=== PATIENT | female | born 1990 | race Caucasian/White ===

== ENCOUNTER 2023-06-10 20:56 | Emergency (ER) | payer BC, SELFPAY ==
[2023-06-10 20:57] VITALS: BP 138/91; PULSE 87; RESP 15; TEMP 36.7; O2SAT 100; BMI 35.6
--- NOTE | 2023-06-10 21:07 | EKG12_ITS ---
Test Reason : CP Blood Pressure : / mmHG Vent. Rate : 086 BPM Atrial Rate : 086 BPM P-R Int : 164 ms QRS Dur : 076 ms QT Int : 368 ms P-R-T Axes : 055 064 052 degrees QTc Int : 440 ms Normal sinus rhythm Possible Left atrial enlargement Borderline ECG Confirmed by GLADYS SANTAMARIA, CHELITA ([id number]), newspaper copy editor NANCY ALMAZAN ([id number]) on 06/18/2023 10:44:23 AM Referred By: ROSE MARIE Confirmed By:CHELITA GRAHAM MD
--- NOTE | 2023-06-10 21:44 | RAD_ITS ---
STUDY: X-RAY CHEST REASON FOR EXAM: Female, 32 years old. chest pain TECHNIQUE: Single AP portable view of the chest. COMPARISON: None. FINDINGS: The lungs are clear and expanded. There is no demonstrated pleural abnormality. Normal size heart. Normal mediastinum and talha. Normal visualized pulmonary arteries. Normal visualized aortic arch and descending thoracic aorta. Normal visualized thoracic spine. Normal visualized ribs, clavicles, and shoulders. There is no demonstrated abnormality of the visualized soft tissue structures of the upper abdomen. RAD/Chest 1 View (Portable) IMPRESSION: Normal x-ray examination of the chest. Electronically Signed: Karla Kelly MD at 22:19 [facility] ,
[2023-06-10 21:57] VITALS: BP 139/76; PULSE 76; RESP 16; O2SAT 100
[2023-06-10 21:59] LABS: Absolute Lymphocyte Count 2.15 X10^3/uL (0.83-4.51); Absolute Neutrophil Count 7.2 X10^3/uL (2.0-7.7); Basophil# 0.04 X10^3/uL; Basophil% 0.4 % (0-1); Eosinophil# 0.14 X10^3/uL; Eosinophils% 1.4 % (0-5); Hematocrit 38.4 % (37-47); Lymphocyte # 2.15 X10^3/ul (0.83-4.51); Lymphocyte % 20.8 % (19-41); Mean Corp Hgb Conc 31.3 g/dL (32-36); Mean Corpuscular Hgb 29.3 pg (27.0-32.0); Mean Corpuscular Volume 93.9 fL (81-99); Mean Platelet Vol. 10.3 fl (6.2-12.0); Monocyte# 0.81 X10^3/uL; Monocyte% 7.8 % (0-10); NRBC Flagged by Analyzer 0 % (0-5); Neutrophil # 7.16 X10^3/uL (2.7-7.7); Platelet Count 253 K/mm3 (150-450); RBC Distribution Width CV 11.9 % (11.6-14.6); RBC Distribution Width SD 41.2 fl (35.1-43.9); Red Blood Count 4.09 M/mm3 (4.2-5.4); White Blood Count 10.4 K/mm3 (4.4-11.0)
--- NOTE | 2023-06-10 21:59 | EDS_ITS ---
HPI History of Present Illness Chief Complaint: Chest Pain PFSH PFSH Allergy/AdvReac Type Severity Reaction Status Date / Time No Known Allergies Allergy Verified 06/10/23 21:02 Social History Smoking Status: Never smoker EXAM Physical Exam Const Vital Signs: 06/10/23 20:57 06/10/23 21:51 06/10/23 21:57 Temperature 98.0 F Temperature Source Temporal Pulse Rate 87 76 Respiratory Rate 15 16 Blood Pressure 138/91 H 139/76 H Blood Pressure Mean 106 97 Pulse Ox 100 100 Oxygen Delivery Method Room Air Room Air Room Air 06/10/23 23:00 06/11/23 00:00 Temperature Temperature Source Pulse Rate 78 72 Respiratory Rate 16 16 Blood Pressure 125/77 H 129/77 H Blood Pressure Mean 93 94 Pulse Ox 100 99 Oxygen Delivery Method Room Air Room Air MDM MDM MDM Narrative Medical decision making narrative: HISTORY OF PRESENT ILLNESS: 32-year-old female presents with chest pain. Notes chest discomfort that is worse with sitting up and lying flat. Notes pain started 48 hours ago and worsened this afternoon. She then notes moving furniture 2 and half weeks ago and noted discomfort after this in her chest. Is been constant since that time per her. Pain is not exertional. She does note it is worse with deep breath. She notes drink alcohol on Friday but not more than usual. She does not smoke. She has no history of hypertension, hyperlipidemia or cardiovascular disease. No family history of early cardiac . No vomiting. No recent illnesses such as coughing, stuffy nose runny nose fever etc. No recent bleeding diathesis noted. No recent diarrhea or other volume loss. Patient denies sudden onset of pain, no tearing sensation, no migratory symptoms, no new numbness, weakness or loss of sensation. Patient denies family history or personal history of Marfan syndrome or Naveen-Danlos. The patient denies recent surgery in the last 4 weeks or immobilization in the last 3 days, denies previous diagnosis of DVT or PE, hemoptysis, unilateral leg swelling or malignancy with treatment the last 6 months. No estrogen use noted. REVIEW OF SYSTEMS: All other systems reviewed and are negative except as noted in the history of present illness. At least 10 review of systems reviewed and are negative except as noted in history of present illness. PHYSICAL EXAM: Nursing triage notes reviewed, Vital signs reviewed Constitutional: please see mdm HENT: MMM Eyes: Pupils equal round and reactive to light, Extraocular muscles intact Neck: No stridor, no JVD, full neck ROM Lungs: Clear to auscultation, No wheezing or rales. No increased work of breathing, no conversational dyspnea, no accessory muscle use, no nasal flaring. No respiratory distress noted Heart: Regular rate and rhythm, No murmurs, No rubs and No gallops, 2+ distal pulses (radial, femoral, posterior tibial) in all extremities Abdomen: Soft, there is no tenderness, rigidity, rebound or guarding, no obvious peritoneal signs, no palpable pulsatile abdominal masses, no auscultated abdominal bruit : No CVAT Extremities: No edema Neuro: No focal neurological deficits, cranial nerves II through XII intact, 5/5 strength in all extremities. Intact sensation to light touch in all extremities, 2+ reflexes bilateral patella tendons. Normal gait. No ataxia. Skin: No rash or lesions noted MEDICAL DECISION MAKING: Chief Complaint: Chest pain External records reviewed: No recent cardiac catheterization stress test or echocardiograms noted in system Factors affecting care: No documented past medical Social determinants of health: No cocaine or methamphetamine History obtained from others: The patient's Consults: none MDM Narrative: Patient was hemodynamically stable, afebrile, nontoxic-appearing. Exam without focal cardiopulmonary abnormalities. I considered the following differential diagnosis: ACS, arrhythmia, anemia, electrolyte abnormality, pneumonia, pneumothorax, GI etiology, PE ALL IMAGES (IF OBTAINED) HAVE BEEN PERSONALLY REVIEWED AND INTERPRETED BY MYSELF. EKG with normal sinus rhythm, normal axis, normal intervals, no STEMI, no evidence of pericarditis. WPW, no Brugada or ARVD CBC without leukocytosis, severe anemia, no thrombocytopenia. I have personally reviewed the patient's chest x-ray. Chest x-ray is unremarkable for pulmonary edema, pneumothorax, pneumonia or focal cardiopulmonary abnormality. Lipase is wnl indicating no pancreatic inflammation. BMP without evidence of significant electrolyte abnormalities, no anion gap, no acute kidney injury. LFTs show no evidence of hepatobiliary pathology. HS-Troponin is negative, no evidence of myocardial ischemiax2 The synthesis of the patient history, physical exam, labs, images show no e vidence of life-limiting etiology. Unclear etiology possible msk related. PE less likely given low risk Wells score. Aortic dissection is thought to be less likely given no sudden ripping or tearin g pain, migratory pain, palpable pulse inequalities, no focal neurologic deficits concurrent with chest pain. Chance of dissection less than 07/1999. Pericarditis less likely given no pathognomonic EKG changes (no diffuse ST elevations, MI depressions). GI etiology (i.e. Boerhaave syndrome) less likely given no chest or neck crepitus, no vomiting or forced retching. I completed a HEART Score to screen for Major Adverse Cardiac Event (MACE) in this patient. The evidence indicates that the patient is very low risk for MACE and this is consistent with my clinical intuition. The risk of further workup or hospitalization for MACE is likely higher than the risk of the patient having a MACE. It is, therefore, in the patient?s best interest not to do additional emergent testing or to be hospitalized for MACE at this time. Shared Decision-Making No hospitalization indicated I have discussed with the patient my clinical impression and the result of the HEART Score to screen for MACE, as well as the risks of further testing and hospitalization. The HEART Score shows that the risk for MACE is less than 1%. Although the risk of MACE has not been completely eliminated, the risks of further testing or hospitalization for MACE likely exceed any potential benefit, and the patient agrees with not pursuing further emergent evaluation or hospitalization for MACE at this time. The patient and/or family, caregivers express understanding. The patient and/or family, caregivers agrees with the plan. Total critical care time today provided was at least 0 minutes. This excludes separately billable procedures. Critical care time (if documented) is secondary to the patient having high probability of clinically significant/life threatening deterioration in the patient's condition which required my urgent intervention. Impression: 1. Chest pain 2. Epigastric abdominal pain Disposition: Discharge Partick Chun DO Lab Data Labs: Laboratory Results - last 24 hr 06/10/23 06/10/23 21:43 23:38 WBC 10.4 RBC 4.09 L Hgb 12.0 Hct 38.4 MCV 93.9 MCH 29.3 MCHC 31.3 L RDW Std Deviation 41.2 RDW Coeff of Alvin 11.9 Plt Count 253 MPV 10.3 Immature Gran % (Auto) 0.600 Neut % (Auto) 69.0 Lymph % (Auto) 20.8 [place] % (Auto) 7.8 Eos % (Auto) 1.4 Baso % (Auto) 0.4 Absolute Neuts (auto) 7.2 Absolute Lymphs (auto) 2.15 Nucleated RBC % 0 Sodium 139 Potassium 4.4 Chloride 107 Carbon Dioxide 29.0 Anion Gap 3 L BUN 15 Creatinine 0.82 Estim Creat Clear Calc 97.52 Est GFR (MDRD) Af Amer 102 Est GFR (MDRD) Non-Af 85 BUN/Creatinine Ratio 18.3 Glucose 109 H Calcium 8.8 Total Bilirubin 0.20 Direct Bilirubin 0.07 AST 24 ALT 38 Alkaline Phosphatase 76 Troponin I High Sens 3 4 Total Protein 7.0 Albumin 3.4 Globulin 3.6 Lipase 45 Radiography Diagnostic Testing: Clinical Impression(s) from Imaging Studies Chest X-Ray 06/10/23 21:44 IMPRESSION: Normal x-ray examination of the chest. Electronically Signed: Karla Kelly MD at 22:19 EST Reading Location ID and State: [address] [place] [address] , Service support , Discharge Plan Triage Chief Complaint: Chest Pain ED Provider: Patrick Chun Dx/Rx/DC Orders Instructions: Chest Pain [facility] Primary Care Provider: Antonio Fung Referrals: Antonio Fung [Primary Care Provider] - Activity Restrictions/Additional Instructions: Thank you for trusting us with your care today! Please take Tylenol (2 pills, 650 mg), ibuprofen (2 pills, 400 mg) every 6 hours as needed for pain and fever control. Please return to the emergency department if your symptoms change or worsen. Please follow with your primary care physician for further outpatient evaluation and management. Disposition Disposition: Home, Self Care Discharge Date/Time: 06/11/23 01:00
[2023-06-10 22:22] LABS: Anion Gap 3 (5-15); BUN 15 mg/dL (7-18); BUN/Creat Ratio 18.3 RATIO (10-20); Calcium,Total 8.8 mg/dL (8.5-10.1); Chloride 107 mmol/L (98-107); Creatinine, Serum 0.82 mg/dL (0.55-1.02); EST Glomerular Filtration Rate 85 mL/min (>60); Est Glom Filt Rate - Afr Amer 102 mL/min (>60); Estimated Creatinine Clearance 97.52 ml/min; Glucose 109 mg/dL (74-106); Potassium 4.4 mmol/L (3.5-5.1); Sodium Level 139 mmol/L (136-145); Troponin-I HS (w/2H Reflex) 3 pg/mL (3.0-54.0)
[2023-06-10 22:40] LABS: AST(SGOT) 24 U/L (15-37); Alanine Aminotransfer ALT/SGPT 38 U/L (13-56); Albumin, Serum 3.4 g/dL (3.2-5.0); Alkaline Phosphatase 76 U/L (45-117); Bilirubin, Direct 0.07 mg/dL (0.00-0.30); Globulin 3.6 g/dL (2.2-4.2); Lipase 45 U/L (13-75)
[2023-06-10 23:00] VITALS: BP 125/77; PULSE 78; RESP 16; O2SAT 100
[2023-06-10 23:56] LABS: Reflex Troponin-HS? (from REC) Y
[2023-06-11] VITALS: BP 129/77; PULSE 72; RESP 16; O2SAT 99
[2023-06-11 00:18] LABS: Troponin-I HS 4 pg/mL (3.0-54.0)
== END 2023-06-11 01:00 | disposition home or self-care (01) ==
PROVIDERS: Emergency Provider Emergency Medicine; PCP Family Medicine; Visit Provider Emergency Medicine
DX: R10.13 Epigastric pain (principal); R07.9 Chest pain, unspecified
CPT/HCPCS: 71045; 80048; 80076; 83690; 84484; 85025; 93005; 99283; A4216